=== PATIENT | female | born 1945 | race African-American/Black ===

== ENCOUNTER → 2018-10-19 | Outpatient (CLI) | payer OTHER ==
--- NOTE | 2018-10-19 16:14 | KCIC ---
Bilateral digital screening mammograms Reason for examination: Routine screening. Comparison is made to previous study dated January 22, 2016 Routine CC and MLO digital views obtained. Interpretation was made with the benefit of CAD. The skin and nipples show no abnormalities. No abnormal lymph nodes are seen. The breast parenchyma is scattered fibroglandular elements. (Breast density: Category B.) There are no suspicious masses, suspicious calcifications or architectural distortions. Impression: Negative mammogram. Recommend routine screening. BI-RADS Category 1: Negative. "Our facility is accredited by the [employer] Mammography Program." This patient's information has been entered into a reminder system for the patient to be notified with the results of her examination and a target date for the next mammogram. Electronically signed by: Fredi Shannon MD (10/19/2018 4:11 PM) [id number]
== END | disposition home or self-care (01) ==
LOC: KCIC MAMMO 11:15
PROVIDERS: ATTEND Nurse Practitioner Family
DX: Z12.31 Encounter for screening mammogram for malignant neoplasm of breast (principal)
CPT/HCPCS: 77067

== ENCOUNTER → 2019-04-20 | Outpatient (CLI) | payer OTHER ==
--- NOTE | 2019-04-20 14:31 | KCIC ---
EXAM: Left breast diagnostic mammogram; left breast sonogram. HISTORY: 74-year-old female presents with left breast pain. TECHNIQUE: Full-field digital craniocaudal, true lateral and mediolateral oblique views of both the left breast are obtained for evaluation. Computer aided detection with VolleeD software version 9.3 was applied. Sonographic imaging of the left breast targeted to the site of reported pain was also performed. COMPARISON: 10/19/2018 01/22/2016 BREAST PARENCHYMAL DENSITY: Level B - Scattered fibroglandular densities. FINDINGS: There is no new suspicious mass, microcalcification or region of architectural distortion. Sonographic imaging of the left breast demonstrates no suspicious finding. IMPRESSION: 1. No suspicious mammographic or sonographic finding within the left breast. 2. BI-RADS Category 2: Benign finding(s). RECOMMENDATION: The patient will be due for bilateral mammography in 6 months according to a previously established bilateral mammography interval. If your mammogram demonstrates that you have dense breast tissue, which could hide abnormalities, and if you have other risk factors for breast cancer that have been identified, you might benefit from supplemental screening tests that may be suggested by your ordering physician. Dense breast tissue, in and of itself, is a relatively common condition. This information is not provided to cause undue concern, but rather to raise your awareness and to promote discussion with your physician regarding the presence of other risk factors, in addition to dense breast tissue. A report of your mammography results will be sent to you and your physician. You should contact your physician if you have any questions or concerns regarding this report. Mammography is a sensitive method for finding small breast cancers, but it does not detect them all and is not a substitute for careful clinical examination. A negative mammogram does not negate a clinically suspicious finding and should not result in delay in biopsying a clinically suspicious abnormality. PQRS compliance statement - Patient information was entered into a reminder system with a target due date for the next mammogram. "Our facility is accredited by the [employer] Mammography [employer]." Electronically signed by: Ivonne Ceja MD (04/20/2019 2:28 PM) [id number]
--- NOTE | 2019-04-23 16:14 | KCIC ---
EXAM: Left breast diagnostic mammogram; left breast sonogram. HISTORY: 74-year-old female presents with left breast pain. TECHNIQUE: Full-field digital craniocaudal, true lateral and mediolateral oblique views of both the left breast are obtained for evaluation. Computer aided detection with MetastormD software version 9.3 was applied. Sonographic imaging of the left breast targeted to the site of reported pain was also performed. COMPARISON: 10/19/2018 01/22/2016 BREAST PARENCHYMAL DENSITY: Level B - Scattered fibroglandular densities. FINDINGS: There is no new suspicious mass, microcalcification or region of architectural distortion. Sonographic imaging of the left breast demonstrates no suspicious finding. IMPRESSION: 1. No suspicious mammographic or sonographic finding within the left breast. 2. BI-RADS Category 2: Benign finding(s). RECOMMENDATION: The patient will be due for bilateral mammography in 6 months according to a previously established bilateral mammography interval. If your mammogram demonstrates that you have dense breast tissue, which could hide abnormalities, and if you have other risk factors for breast cancer that have been identified, you might benefit from supplemental screening tests that may be suggested by your ordering physician. Dense breast tissue, in and of itself, is a relatively common condition. This information is not provided to cause undue concern, but rather to raise your awareness and to promote discussion with your physician regarding the presence of other risk factors, in addition to dense breast tissue. A report of your mammography results will be sent to you and your physician. You should contact your physician if you have any questions or concerns regarding this report. Mammography is a sensitive method for finding small breast cancers, but it does not detect them all and is not a substitute for careful clinical examination. A negative mammogram does not negate a clinically suspicious finding and should not result in delay in biopsying a clinically suspicious abnormality. PQRS compliance statement - Patient information was entered into a reminder system with a target due date for the next mammogram. "Our facility is accredited by the [employer] Mammography Program." [facility]
== END | disposition home or self-care (01) ==
LOC: KCIC MAMMO 12:49
PROVIDERS: ATTEND Nurse Practitioner Family
DX: N64.4 Mastodynia (principal)
CPT/HCPCS: 76641; 77065

== ENCOUNTER → 2020-06-29 | Outpatient (CLI) | payer MEDICARE, OTHER ==
--- NOTE | 2020-06-29 13:56 | KCIC ---
Bilateral diagnostic digital mammograms with 3-D tomosynthesis: Reason for examination: Left breast pain that shoots to the nipple for 2 months. Covid vaccine in the left arm. Comparison is made to previous studies dated back to 01/22/2016. Bilateral mammograms in CC and oblique projections were obtained with 2-D imaging and 3-D tomosynthes is imaging on a Siemens Inspiration unit and reviewed on the workstation. Interpretation was made wit h the benefit of CAD. The skin and nipples show no abnormalities. No abnormal axillary lymph nodes are seen. The breast par enchyma shows scattered fatty and fibroglandular density. (Breast density: Category B.) There is no d iscrete cystic or solid lesion seen in the left breast. There is some mild patchy asymmetry at the 1: 00 position of the right breast anteriorly however this appears relatively stable mammographically. T here are no new masses, suspicious calcifications or architectural distortion. A few benign-appearing calcifications are present. Impression: Subtle parenchymal nodule in the 1:00 position anteriorly in the right breast. No focal abnormalities in the left breast. Ultrasound to follow. BI-RAD Category 0: Incomplete. Needs additional imaging evaluation. Bilateral breast ultrasound: Ultrasound examinations of the breast and axilla were performed. In the right breast at the 1:00 position 4.5 cm from the nipple and corresponding to the area of mamm ographic concern, there is a hypoechoic circumscribed lesion measuring 1.4 cm in length and line in p arallel orientation. This shows no abnormal vascularity in the appearance suggests possible small fib roadenoma. No other cystic or solid lesions are seen. No abnormal appearing lymph nodes are seen in t he right axilla. In the left breast, no discrete cystic or solid nodules are seen. No abnormal appearing lymph nodes a re seen in the axilla. IMPRESSION: Hypoechoic elongated lesion at the 1:00 position of the right breast corresponds to the area of mammo graphic concern but appears to be stable mammographically. This may represent a fibroadenoma but foll ow-up in 6 months is recommended. No focal abnormality seen in the left breast. BI-RADS Category 3: Probably Benign. "Our facility is accredited by the [employer] Mammography Program." This patient's information has been entered into a reminder system for the patient to be notified wit h the results of her examination and a target date for the next mammogram. Electronically signed by: Elisha Miller MD (06/29/2020 1:53 PM) [id number]
== END ==
LOC: KCIC MAMMO 10:15
PROVIDERS: ATTEND Nurse Practitioner Family
DX: N63.12 Unspecified lump in the right breast, upper inner quadrant (principal); N64.4 Mastodynia
CPT/HCPCS: 76641; 77066; G0279; 77062

== ENCOUNTER → 2021-01-30 | Outpatient (CLI) | payer MEDICARE, OTHER ==
--- NOTE | 2021-01-30 14:30 | KCIC ---
Right breast diagnostic digital mammograms with 3-D tomosynthesis: Reason for examination: Follow-up nodule. Comparison is made to previous studies dated back to 01/22/2016. Right breast mammograms in CC and oblique projections were obtained with 2-D imaging and 3-D tomosynt hesis imaging on a Siemens Inspiration unit and reviewed on the workstation. Interpretation was made with the benefit of CAD. The skin and nipple show no abnormalities. No abnormal axillary lymph nodes are seen. The breast pare nchyma shows scattered fatty and fibroglandular density. (Breast density: Category B.) There continue s to be a faint discoid nodular density at the 1:00 B position of the right breast which appears to b e similar to previous exam. There are no new dominant masses, suspicious calcifications or architectu ral distortion. Impression: Continued presence of a faint discoid nodular density at the 1:00 B position of the right breast. Ult rasound to follow. BI-RADS Category 0: Incomplete. Needs additional imaging evaluation. Right breast ultrasound: Comparison is made to previous study dated 06/29/2020. Ultrasound examination of the right breast and axilla was performed. At the 1:00 position 4.5 cm from the nipple, there continues to be a 1.4 cm hypoechoic nodule in para llel orientation with a fibrocystic appearance which shows no abnormal vascularity. No other cystic o r solid lesions are seen. No abnormal appearing lymph nodes are seen in the right axilla. IMPRESSION: Continued presence of a 1.4 cm hypoechoic fibrocystic type nodule at the 1:00 position of the right b reast which corresponds to the mammographic abnormality and has remained stable. Recommend continued 6 month follow-up with bilateral mammograms and right breast ultrasound. BI-RADS Category 3: Probably Benign. "Our facility is accredited by the [employer] Mammography Program." This patient's information has been entered into a reminder system for the patient to be notified wit h the results of her examination and a target date for the next mammogram. Electronically signed by: Elisha Miller MD (01/30/2021 2:27 PM) [email or web address]
== END ==
LOC: KCIC MAMMO 13:01
PROVIDERS: ATTEND Nurse Practitioner Family
DX: N63.11 Unspecified lump in the right breast, upper outer quadrant (principal)
CPT/HCPCS: 76641; 77065; G0279; 77061